=== PATIENT | male | born 1945 | race Caucasian/White ===

== ENCOUNTER 2016-08-02 13:30 | Emergency (ER) | payer MEDICARE, OTHER ==
[2016-08-02 13:52] LABS: BASO % 0.3 % (0.2-1.2); EOS % 0.4 % (0.8-7.0); GRAN # 4.5 10_X3_uL (1.8-5.4); GRAN % 67.4 % (34.0-67.9); HEMOGLOBIN 15.9 g/dL (13.7-17.5); LYMPH # 1.7 10_X3_uL (1.3-3.6); LYMPH % 24.9 % (21.8-53.1); MEAN CORPUSCULAR HEMOGLOBIN 29.7 pg (27.0-33.0); MEAN CORPUSCULAR HGB CONC 34.6 g/dL (32.0-36.0); MEAN CORPUSCULAR VOLUME 85.8 fL (79-92); MEAN PLATELET VOLUME 10.8 fl (7.5-11.5); MONO # 0.5 10_X3_uL (0.3-0.8); PLATELET COUNT 168 x10_3/uL (163-337); RED BLOOD COUNT 5.36 x10_6/uL (4.6-6.1); RED CELL DISTRIBUTION WIDTH 14.1 % (11.6-14.4); WHITE BLOOD COUNT 6.7 x10_3/uL (4.2-9.1)
[2016-08-02 14:09] LABS: ALBUMIN 4.4 gm/dL (3.4-5.0); ALKALINE PHOSPHATASE 83 U/L (50-136); ALT/SGPT 17 U/L (7.53-40.17); AST/SGOT 17 U/L (6.66-35.34); BILIRUBIN,TOTAL 0.56 mg/dL (0.0-1.0); BLOOD UREA NITROGEN 12 mg/dL (7-18); CALCIUM 9.4 mg/dL (8.7-10.7); CARBON DIOXIDE 25 mmol/L (21-32); CREATINE KINASE 92 U/L (35-232); CREATININE 0.9 mg/dL (0.6-1.3); GLUCOSE,RANDOM 146 mg/dL (70-99); POTASSIUM 4.5 mmol/L (3.5-5.1); SODIUM 141 mmol/L (136-145); TOTAL PROTEIN 7.6 gm/dL (6.4-8.2)
== END 2016-08-02 19:04 | disposition short-term general hospital (02) ==
LOC: ER 13:30
PROVIDERS: Emergency Medicine
DX: I20.0 Unstable angina (principal); R07.9 Chest pain, unspecified; R00.0 Tachycardia, unspecified; I48.91 Unspecified atrial fibrillation; E11.9 Type 2 diabetes mellitus without complications; I10 Essential (primary) hypertension; F41.9 Anxiety disorder, unspecified; Z95.1 Presence of aortocoronary bypass graft; Z95.5 Presence of coronary angioplasty implant and graft; Z95.0 Presence of cardiac pacemaker; Z79.4 Long term (current) use of insulin; Z79.01 Long term (current) use of anticoagulants; Z79.899 Other long term (current) drug therapy; Z88.2 Allergy status to sulfonamides; Z88.5 Allergy status to narcotic agent; Z88.8 Allergy status to other drugs, medicaments and biological substances
CPT/HCPCS: 36415; 71010; 80053; 82550; 82553; 85025; 93005; 96361; 96374; 99070; 99284; 99285-25; J7040

== ENCOUNTER 2016-09-22 18:39 | Emergency (ER) | payer MEDICARE, OTHER | END 2016-09-22 20:15 | disposition home or self-care (01) | LOC: ER 18:39 | DX: J40 Bronchitis, not specified as acute or chronic (principal); I48.91 Unspecified atrial fibrillation; E11.9 Type 2 diabetes mellitus without complications; I10 Essential (primary) hypertension; Z95.1 Presence of aortocoronary bypass graft; Z95.0 Presence of cardiac pacemaker; F17.210 Nicotine dependence, cigarettes, uncomplicated; Z79.82 Long term (current) use of aspirin; Z79.899 Other long term (current) drug therapy; Z79.4 Long term (current) use of insulin; Z88.2 Allergy status to sulfonamides; Z88.5 Allergy status to narcotic agent | CPT/HCPCS: 93005; 99283-25; 99284 ==

== ENCOUNTER 2016-11-05 13:27 | Emergency (ER) | payer MEDICARE, OTHER ==
[2016-11-05 13:58] LABS: BASO % 0.3 % (0.2-1.2); EOS # 0.1 10_X3_uL (0.0-0.5); EOS % 0.9 % (0.8-7.0); GRAN # 5.1 10_X3_uL (1.8-5.4); GRAN % 65.9 % (34.0-67.9); HEMATOCRIT 41.9 % (40-51); HEMOGLOBIN 14.3 g/dL (13.7-17.5); LYMPH # 1.9 10_X3_uL (1.3-3.6); LYMPH % 25.1 % (21.8-53.1); MEAN CORPUSCULAR HGB CONC 34.1 g/dL (32.0-36.0); MEAN PLATELET VOLUME 11.1 fl (7.5-11.5); MONO # 0.6 10_X3_uL (0.3-0.8); MONO % 7.8 % (5.3-12.2); PLATELET COUNT 168 x10_3/uL (163-337); RED BLOOD COUNT 4.76 x10_6/uL (4.6-6.1); RED CELL DISTRIBUTION WIDTH 14.2 % (11.6-14.4); WHITE BLOOD COUNT 7.7 x10_3/uL (4.2-9.1)
[2016-11-05 14:10] LABS: ALKALINE PHOSPHATASE 73 U/L (50-136); ALT/SGPT 18 U/L (7.53-40.17); AST/SGOT 22 U/L (6.66-35.34); BILIRUBIN,TOTAL 0.57 mg/dL (0.0-1.0); BLOOD UREA NITROGEN 14 mg/dL (7-18); CALCIUM 9.1 mg/dL (8.7-10.7); CARBON DIOXIDE 23 mmol/L (21-32); CREATINE KINASE 135 U/L (35-232); CREATININE 0.9 mg/dL (0.6-1.3); GLUCOSE,RANDOM 114 mg/dL (70-99); POTASSIUM 4.1 mmol/L (3.5-5.1); SODIUM 140 mmol/L (136-145); TOTAL PROTEIN 6.7 gm/dL (6.4-8.2)
[2016-11-05 14:12] LABS: PARTIAL THROMBOPLASTIN TIME 22.5 SECONDS (21.8-28.4); PROTHROMBIN TIME (PATIENT) 10.4 SECONDS (9.6-10.8)
== END 2016-11-05 16:09 | disposition home or self-care (01) ==
LOC: ER 13:27
PROVIDERS: Emergency Medicine
DX: I48.91 Unspecified atrial fibrillation (principal); I49.3 Ventricular premature depolarization; E11.9 Type 2 diabetes mellitus without complications; Z99.81 Dependence on supplemental oxygen; Z95.0 Presence of cardiac pacemaker; Z95.5 Presence of coronary angioplasty implant and graft; Z79.82 Long term (current) use of aspirin; Z79.899 Other long term (current) drug therapy; Z79.4 Long term (current) use of insulin; Z88.2 Allergy status to sulfonamides; Z88.5 Allergy status to narcotic agent; Z88.8 Allergy status to other drugs, medicaments and biological substances
CPT/HCPCS: 36415; 71010; 80053; 82550; 82553; 85025; 85610; 85730; 93005; 99070; 99284; 99285-25